=== PATIENT | female | born 1995 | race Hispanic/Latino ===

== ENCOUNTER 2020-06-08 05:01 | Emergency (ER) | payer SELFPAY ==
[2020-06-08] MEDS ORDERED: Ketorolac Tromethamine 30 MG/ML VIAL ONE (05:38)
[2020-06-08] MEDS ORDERED: Ondansetron PF 4 MG/2 ML Vial ONE ×3 (05:38→11:29)
[2020-06-08] MEDS ORDERED: Morphine 4 MG/ML VIAL ONE (05:38)
[2020-06-08 05:56] LABS: #Basophils 0.1 thou/uL (0.0-0.2); #Eosinphils 0.1 thou/uL (0.0-0.7); #Lymphocytes 2.2 thou/uL (1.20-3.40); #Monocytes 0.5 thou/uL (0.11-0.59); #Neutrophils 4.5 thou/uL (1.40-6.50); %Basophils 0.7 % (0.0-1.0); %Eosinophils 1.2 % (0.0-10.0); %Lymphocytes 30.3 % (21.0-51.0); %Monocytes 6.1 % (0.0-10.0); %Neutrophils 61.6 % (42.0-75.0); Hemoglobin 13.6 g/dL (12.0-16.0); Mean Corpuscular HGB CONC 33.3 g/dL (32.0-36.0); Mean Corpuscular Hemoglobin 28.7 pg (27.0-31.0); Mean Platelet Volume 8.1 fL (7.4-10.4); Platelet Count 272 thou/uL (130-400); RBC Distribution Width 12.7 % (11.5-14.5); Red Blood Cell (RBC) Count 4.75 mill/uL (4.20-5.40); White Blood Cell (WBC) Count 7.3 thou/uL (4.8-10.8)
[2020-06-08 06:11] LABS: BHCG - Serum Negative (NEGATIVE); Pregs Control Background? CLEAR/WHITE (CLR/WHITE); Pregs Control Bar Appear? YES (CONTROL BAR)
[2020-06-08 06:20] LABS: ALT (SGPT) 14 U/L (8-55); AST (SGOT) 15 U/L (5-34); Albumin 4.3 g/dL (3.5-5.0); Alkaline Phosphatase 69 U/L (40-110); Anion Gap 13 mmol/L (10-20); BUN (Urea Nitrogen) 8 mg/dL (7.0-18.7); Bilirubin, Total 0.6 mg/dL (0.2-1.2); Calc. Creatinine Clearance 0 mL/min (70-130); Calcium 9.4 mg/dL (7.8-10.44); Carbon Dioxide 24 mmol/L (22-29); Chloride 104 mmol/L (98-107); Globulin 3.3 g/dL (2.4-3.5); Glucose 118 mg/dL (70-105); Lipase 13 U/L (8-78); Potassium 3.7 mmol/L (3.5-5.1); Protein, Total 7.6 g/dL (6.0-8.3); Sodium 137 mmol/L (136-145)
[2020-06-08] MEDS ORDERED: Fentanyl 100 MCG/2 ML VIAL ONE ×5 (06:33→12:22)
[2020-06-08 07:33] LABS: SARS-CoV-2 NAA Rapid Test Not Detected (NotDetected)
[2020-06-08 07:46] LABS: Bilirubin Negative (Negative); Blood, Urine Negative (Negative); Clarity Clear (Clear); Glucose, Urine (Dipstick) Normal (Negative); Ketone, Urine Negative (Negative); Leukocyte Negative Leu/uL (Negative); Nitrite Negative (Negative); Protein, Urine (Dipstick) Negative (Neg-Trace); Specific Gravity, Urine 1.005 (1.002-1.036); Urobilinogen Normal mg/dL (Less than 2); pH, Urine 6.5 (5.0-9.0)
--- NOTE | 2020-06-08 07:46 | ULT ---
PRELIMINARY REPORT/[facility]/EMERGENCY AFTER HOURS PROCEDURE Receipt of this report by the clinical staff was confirmed with Silvia Blackburn MD by Michele Connolly on Jun 08, 2020 06:22:00 [employer]OVER AND STRIPER OPERATOR. Addendum electronically signed by Eladio Connolly on June 08, 2020 6:22:44 AM GROOVER AND STRIPER OPERATOR EXAM: US Abdomen Limited, Right Upper Quadrant. CLINICAL HISTORY: Abd pain TECHNIQUE: Real-time ultrasound of the right upper quadrant with image documentation. COMPARISON: None provided. FINDINGS: LIVER: Unremarkable. Measures 15.8 cm GALLBLADDER: Cholelithiasis is noted with mild wall thickening at 3.3 mm along with pericholecystic fluid and the patient demonstrated a positive sonographic Dean's sign. COMMON BILE DUCT: Measures 6.5 mm PANCREAS: Unremarkable as visualized. The distal pancreas is obscured by overlying bowel gas. RIGHT KIDNEY: Unremarkable. No hydronephrosis. Measures 10.4 cm IMPRESSION: The findings are consistent with acute cholecystitis ELECTRONICALLY SIGNED BY: West Gao MD Jun 08, 2020 6:19:41 AM GROOVER AND STRIPER OPERATOR This report is intended for review by the ordering physician only, in accordance of law. If you recei ve this report in error, please call [facility] at [phone]. FINAL REPORT Right upper quadrant ultrasound: 06/08/2020 COMPARISON: 06/02/2020. HISTORY: Right upper quadrant pain. TECHNIQUE: Multiplanar grayscale sonographic imaging of the right upper quadrant provided. FINDINGS: Imaged pancreas unremarkable. The tail is obscured by bowel gas. No focal liver lesion or i ntrahepatic biliary dilatation. The common bile duct is slightly dilated, measuring in the 6-7 mm range. The vet assistant reports a positive Dean's sign. There is mild gallbladder wall thickening, the gall bladder wall measuring in the 3-4 mm range. Gallbladder stones and sludge noted. The right kidney measures 10.5 cm in craniocaudal dimension and demonstrates no evidence for stone, h ydronephrosis, or mass lesion. IMPRESSION: Gallbladder wall thickening with gallstones/gallbladder sludge and positive Dean's sign, suspicious for acute cholecystitis in the proper clinical setting. Surgical consultation advised. Common bile duct measures 6-7 mm, prominent in a patient of this age. This could signify biliary obst ruction on the basis of nonvisualized choledocholithiasis. Code QA Transcribed Date/Time: 06/08/2020 7:55 AM
[2020-06-08] MEDS ORDERED: Rocuronium Bromide 10 MG/ML (10ML VIAL) ONE (09:24)
[2020-06-08] MEDS ORDERED: Succinylcholine 200 MG/10 ml SYRINGE FS ONE (09:24)
[2020-06-08] MEDS ORDERED: PROPOFOL 200 MG/20 ML VIAL ONE (09:24)
[2020-06-08] MEDS ORDERED: Lidocaine 1% PF 5 ML VIAL ONE (09:24)
[2020-06-08] MEDS ORDERED: Dexamethasone 20 MG/5 ML VIAL ONE (09:24)
[2020-06-08] MEDS ORDERED: Glycopyrrolate 0.2 MG/ML 5 ML SYRINGE ONE (09:24)
[2020-06-08] MEDS ORDERED: Ketorolac Tromethamine 30 MG/ML VIAL IVP SCH (09:30)
[2020-06-08] MEDS ORDERED: Acetaminophen 500 MG TAB PO SCH (09:30)
[2020-06-08] MEDS ORDERED: Sodium Chloride 0.9% 1,000 ML IV SCH (09:30)
--- NOTE | 2020-06-08 09:35 | HP ---
A 24-year-old female presents with onset of right upper quadrant epigastric pain yesterday, nausea without vomiting. She has had previous episodes. She presents to the emergency room. Ultrasound of the gallbladder performed reveals gallstones, normal bile duct caliber with positive sonographic Dean sign, bile duct 6.5 mm. Previous ultrasound 06/02/2020, revealed similar findings at which time she was instructed to seek surgical attention, but she reports with recurrent episodes and intolerable pain. White count 7, hemoglobin 13. Comprehensive metabolic profile normal and normal liver function test. COVID negative. ALLERGIES: NONE. SOCIAL HISTORY: Tobacco, none. Alcohol, none. MEDICATIONS: None. PAST SURGICAL AND MEDICAL HISTORY: Noncontributory. REVIEW OF SYSTEMS: Ten-point noncontributory. FAMILY HISTORY: Noncontributory. PHYSICAL EXAMINATION: VITAL SIGNS: Blood pressure 112/68, respiratory rate 18, heart rate 64. HEAD, EARS, EYES, NOSE, AND THROAT: Unremarkable. Sclerae nonicteric. SKIN: Nonjaundiced. NEUROLOGICAL: Intact. GCS 15. CARDIAC: Regular rate and rhythm. No murmur or gallop. PULMONARY: Clear to auscultation. ABDOMEN: Tenderness in right upper quadrant with positive Dean's. EXTREMITIES: Without ankle edema. ASSESSMENT AND PLAN: Cholecystitis and cholelithiasis, both acute and chronic cholecystitis. We would recommend laparoscopic video cholecystectomy. Risks of infection, bleeding, visceral and biliary injury discussed. Questions answered. Job ID: [id number]
[2020-06-08] MEDS ORDERED: Lidocaine 2% Jelly 5 ML TUBE ONE (09:38)
[2020-06-08] MEDS ORDERED: Bupivacaine PF 0.5% 30 ML VIAL ONE (09:49)
[2020-06-08] MEDS ORDERED: EPINEPHrine 1 MG/ML AMP ONE (09:49)
[2020-06-08] MEDS ORDERED: Acetaminophen 500 MG TAB ONE (09:57)
[2020-06-08] MEDS ORDERED: Levofloxacin 500 mg/D5W 100 ml Premix Bag ONE (09:57)
[2020-06-08] MEDS ORDERED: Promethazine HCl 25 MG/ML VIAL ONE (12:01)
--- NOTE | 2020-06-08 12:08 | OP ---
DATE OF PROCEDURE: 06/08/2020 PREOPERATIVE DIAGNOSES: 1. [id number] cholecystitis. 2. Cholelithiasis. POSTOPERATIVE DIAGNOSES: 1. [id number] cholecystitis. 2. Cholelithiasis. PROCEDURE PERFORMED: Laparoscopic video cholecystectomy. ANESTHESIA: General, local with 0.5% Marcaine 30 mL, mixed with 1% Xylocaine with epinephrine 20 mL. DESCRIPTION OF PROCEDURE: The patient was taken to the operating room where under general anesthesia, abdomen was prepared with ChloraPrep and draped in routine fashion. Local anesthetic mixture was infiltrated into the skin and subcutaneous tissue about each port site. Infraumbilical incision made, pneumoperitoneum to 15 mmHg was obtained with a Veress needle, replacing it with a 5 port and video laparoscope inserted. Right subxiphoid incision was made and 11 port placed. Right subcostal incision made in midclavicular entrance line and 5 port was placed. Liver appeared to be normal. Gallbladder acutely inflamed, edematous, thickened wall. Fundus difficult to grasp, but did grasp it, reflecting it cephalad. Infundibulum grasped and reflected laterally, the large stone obstructing the gallbladder outlet. Cystic artery and duct carefully dissected free. Critical view obtained. Cystic artery and duct doubly clipped proximally and divided. Gallbladder dissected free from liver bed, obtaining good hemostasis prior to division of final peritoneal attachments. The gallbladder and large stone contents were removed and submitted to Pathology. Good hemostasis obtained with cautery. Irrigant and pneumoperitoneum evacuated. All instruments were removed and all skin incisions were approximated with interrupted subdermal 4-0 Monocryl and [place] glue applied. Job ID: [id number]
== END 2020-06-08 09:46 | disposition admitted as inpatient to this hospital (09) ==
LOC: ERS 05:01
DX: K80.00 Calculus of gallbladder with acute cholecystitis without obstruction (principal)
CPT/HCPCS: 0240U; 76705; 80053; 81003; 83690; 84703; 85025; 88304; 96365; 96375; J0171; J1100; J1885; J1956; J2270; J2405; J2550; J2704; J3010; S0020